=== PATIENT | male | born 1950 | race Caucasian/White ===

== ENCOUNTER 2023-10-03 10:05 | Outpatient (OUT) | payer MEDICARE, OTHER, SELFPAY ==
--- NOTE | 2023-10-03 10:27 | XR_ITS ---
The [address] [address] Patient Name: JAYLEN DE LA ROSA MRN: [id number] date: 1950 Sex: M Assigned Patient Location: [facility] Current Patient Location: Accession/Order Number: [id number] Exam Date: 10/03/2023 10:19 Report Date: 10/04/2023 06:02 At the request of: CONSTANTINO JONES Procedure: XR hip LT 2V w/ pelvis PROCEDURE: XR hip LT 2V w/ pelvis HISTORY: Pain In Left Hip M25.552 COMPARISON: None. FINDINGS: BONES:Mild narrowing of the superior aspect of the hip joint spaces bilaterally. No fracture, dislocation, or periarticular osteophytes. SOFT TISSUES:No visible soft tissue swelling. EFFUSION:None visible. OTHER: Disc space narrowing of L4-L5. XR/XR hip LT 2V w/ pelvis IMPRESSION: 1. Mild degenerative changes of hip joints. No acute bone abnormality or suspicious bone abnormality. 2. 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 Electronically authenticated by: KESHA DOYLE Date: 10/04/2023 06:02
== END 2023-10-03 10:06 | disposition home or self-care (01) ==
PROVIDERS: PCP Internal Medicine; Visit Provider Internal Medicine
DX: M25.552 Pain in left hip (principal); M16.0 Bilateral primary osteoarthritis of hip; M51.36 Other intervertebral disc degeneration, lumbar region
CPT/HCPCS: 73502